=== PATIENT | female | born 1990 | race Caucasian/White ===

== ENCOUNTER → 2017-08-31 | Outpatient (CLI) | payer MEDICAID ==
--- NOTE | 2017-08-31 14:11 | RADIOLOGY REPORT (SQ) ---
EXAM DESCRIPTION: CHEST PA/LATERAL COMPLETED DATE/TIME: 08/31/2017 1:56 pm REASON FOR STUDY: CHEST PAIN, UNSPECIFIED COMPARISON: None. EXAM PARAMETERS: NUMBER OF VIEWS: two views TECHNIQUE: Digital Frontal and Lateral radiographic views of the chest acquired. RADIATION DOSE: NA LIMITATIONS: none FINDINGS: LUNGS AND PLEURA: No opacities, masses or pneumothorax. No pleural effusion. MEDIASTINUM AND HILAR STRUCTURES: No masses or contour abnormalities. HEART AND VASCULAR STRUCTURES: Heart normal size. No evidence for failure. BONES: No acute findings. HARDWARE: None in the chest. OTHER: No other significant finding. IMPRESSION: NO SIGNIFICANT RADIOGRAPHIC FINDING IN THE CHEST. TECHNICAL DOCUMENTATION: JOB ID: [id number] [employer]- All Rights Reserved
== END ==
LOC: OD 13:37
PROVIDERS: ATTEND Nurse Practitioner Acute Care
DX: R07.9 Chest pain, unspecified (principal)
CPT/HCPCS: 71020

== ENCOUNTER → 2018-03-24 | Outpatient (CLI) | payer MEDICAID ==
--- NOTE | 2018-03-24 18:58 | RADIOLOGY REPORT (SQ) ---
EXAM DESCRIPTION: C SP 3 VWS OR LESS COMPLETED DATE/TIME: 03/24/2018 5:49 pm REASON FOR STUDY: NECK PAIN COMPARISON: None. NUMBER OF VIEWS: Two views TECHNIQUE: AP and lateral radiographic images acquired of the cervical spine. LIMITATIONS: None. FINDINGS: MINERALIZATION: Normal. ALIGNMENT: Anatomic. VERTEBRAE: Vertebral bodies of normal height. DISCS: No significant disc space narrowing. No large osteophytes. HARDWARE: None in the spine. SOFT TISSUES: No masses or calcifications. Lung apices clear. OTHER: No other significant finding. IMPRESSION: NO SIGNIFICANT RADIOGRAPHIC FINDING IN THE CERVICAL SPINE. TECHNICAL DOCUMENTATION: JOB ID: [id number] [employer]- All Rights Reserved Reading location - IP/workstation name: [email or web address]
== END ==
LOC: OD 17:25
PROVIDERS: ATTEND Nurse Practitioner Family
DX: M54.2 Cervicalgia (principal)
CPT/HCPCS: 72040

== ENCOUNTER 2018-03-28 03:29 | Emergency (ER) | payer MEDICAID ==
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
[2018-03-28] MEDS ORDERED: LIDOCAINE 5% (700 MG) TRANSDERMAL ADH..PATCH TP ONE (08:06)
[2018-03-28] MEDS ORDERED: IBUPROFEN 800 MG TABLET PO ONE (08:06)
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
[2018-03-28 08:29] VITALS: BP 128/69
== END 2018-03-28 08:28 | disposition home or self-care (01) ==
LOC: ER 03:29
DX: S43.402A Unspecified sprain of left shoulder joint, initial encounter (principal); S46.812A Strain of other muscles, fascia and tendons at shoulder and upper arm level, left arm, initial encounter; W19.XXXA Unspecified fall, initial encounter
CPT/HCPCS: 99283; 73030; J3490 ×2

== ENCOUNTER 2018-07-04 09:02 | Emergency (ER) | payer MEDICAID ==
[2018-07-04 09:27] LABS: APPEARANCE,URINE CLEAR; BILIRUBIN,URINE NEGATIVE (NEGATIVE); COLOR,URINE YELLOW; GLUCOSE, URINE NEGATIVE (NEGATIVE); KETONES,URINE NEGATIVE (NEGATIVE); LEUKOCYTE ESTERASE,URINE NEGATIVE (NEGATIVE); NITRITE,URINE NEGATIVE (NEGATIVE); PROTEIN,URINE NEGATIVE (NEGATIVE); URINE SPECIFIC GRAVITY 1.016; UROBILINOGEN,URINE NEGATIVE mg/dL (<2.0)
--- NOTE | 2018-07-04 09:48 | ER Document Report ---
ED Medical Screen (RME) - General Chief Complaint: Urinary Problem Stated Complaint: URINARY PROBLEM Time Seen by Provider: 07/04/18 09:37 Notes: Patient says she thinks she has a UTI. She is having sharp, stabbing pains in the lower pelvic region bilaterally and also pressure in the pelvic region. Patient says that she started having this pressure feeling in her pelvic region about a week and a half ago. Then, she started having symptoms like a urinary tract infection Thursday night. She is having urgency and burning at times, but now it is just mostly pressure. She has not noticed any blood in her urine. Has not had any fevers. Nauseated but not vomiting. LMP was last wee. No history of any abdominal surgeries. On no regular prescription medications. TRAVEL OUTSIDE OF THE [place] IN LAST 30 DAYS: No - Related Data Allergies/Adverse Reactions: No Known Allergies Allergy (Verified 07/04/18 09:40) Past Medical History - General Last Menstrual Period: last week - Social History Chew tobacco use (# tins/day): No Frequency of alcohol use: weekends Drug Abuse: Cocaine Renal/ Medical History: Denies: Hx Peritoneal Dialysis - Immunizations Hx Diphtheria, Pertussis, Tetanus Vaccination: Yes Physical Exam - Vital signs Vitals: Temp Pulse Resp BP Pulse Ox 98.3 F 100 18 145/91 H 98 07/04/18 09:09 07/04/18 09:09 07/04/18 09:09 07/04/18 09:09 07/04/18 09:09 Course - Vital Signs Vital signs: Temp Pulse Resp BP Pulse Ox 98.3 F 100 18 145/91 H 98 07/04/18 09:09 07/04/18 09:09 07/04/18 09:09 07/04/18 09:09 07/04/18 09:09 Doctor's Discharge - Discharge Referrals: MIMA ESCOBAR FNP-C [Primary Care Provider] - Follow up as needed
[2018-07-04 10:16] LABS: ABSOLUTE BASOPHILS # (AUTO) 0.1 10^3/uL (0.0-0.2); ABSOLUTE LYMPHOCYTES (AUTO) 1.9 10^3/uL (0.5-4.7); ABSOLUTE MONOCYTES (AUTO) 0.4 10^3/uL (0.1-1.4); ABSOLUTE NEUT (AUTO) 8.3 10^3/uL (1.7-8.2); BASOPHILS % (AUTO) 0.6 % (0-2); HEMATOCRIT 38.2 % (36.0-47.0); HEMOGLOBIN 13.1 g/dL (12.0-15.5); LYMPHOCYTES % (AUTO) 17.9 % (13-45); MEAN CORPUSCULAR HEMOGLOBIN 31.1 pg (27.0-33.4); MEAN CORPUSCULAR HGB CONC 34.3 g/dL (32.0-36.0); MEAN CORPUSCULAR VOLUME 91 fl (80-97); MONOCYTES % (AUTO) 3.7 % (3-13); PLATELET COUNT 284 10^3/uL (150-450); RED BLOOD COUNT 4.21 10^6/uL (3.72-5.28); RED CELL DISTRIBUTION WIDTH 12.9 % (11.5-14.0); SEGMENTED NEUTROPHILS % (AUTO) 77.8 % (42-78); TOTAL CELLS COUNTED % (AUTO) 100 %; WHITE BLOOD COUNT 10.7 10^3/uL (4.0-10.5)
[2018-07-04 10:29] LABS: ALANINE AMINOTRANSFERASE 23 U/L (9-52); ALBUMIN 4.5 g/dL (3.5-5.0); ALKALINE PHOSPHATASE 73 U/L (38-126); ANION GAP 9 (5-19); ASPARTATE AMINO TRANSFERASE 23 U/L (14-36); BILIRUBIN,DIRECT 0.4 mg/dL (0.0-0.4); BILIRUBIN,TOTAL 0.6 mg/dL (0.2-1.3); BLOOD UREA NITROGEN 10 mg/dL (7-20); CALCIUM 9.8 mg/dL (8.4-10.2); CARBON DIOXIDE 24 mmol/L (22-30); CHLORIDE 106 mmol/L (98-107); GLUCOSE 99 mg/dL (75-110); LIPASE 44.8 U/L (23-300); POTASSIUM 4.3 mmol/L (3.6-5.0); TOTAL PROTEIN 7.6 g/dL (6.3-8.2)
--- NOTE | 2018-07-04 11:27 | ER Document Report ---
ED GI/ <MEGAN CUETO - Last Filed: 07/04/18 11:47> - General Information source: Patient TRAVEL OUTSIDE OF THE [place] IN LAST 30 DAYS: No - HPI Patient complains to provider of: Other - See above Onset: Other - See above Timing/Duration: Gradual Quality of pain: Other - See above Severity at maximum: Mild Severity in ED: Mild Pain Level: Denies Sexual history: Active Associated symptoms: Other - See above Exacerbated by: Denies Relieved by: Denies Similar symptoms previously: Yes Recently seen / treated by doctor: Yes <DONI RAMOS - Last Filed: 07/04/18 12:34> - General Chief Complaint: Urinary Problem Stated Complaint: URINARY PROBLEM Time Seen by Provider: 07/04/18 09:37 Notes: Patient is a 28-year-old female with past medical history as recorded on 10 days ago started to have some intermittent suprapubic abdominal discomfort without radiation. She denies nausea, vomiting, fevers, but does state some dysuria and some white vaginal discharge. No flank pain or history of kidney stones. Patient denies any pain at this time. (DONI RAMOS) - Related Data Allergies/Adverse Reactions: No Known Allergies Allergy (Verified 07/04/18 09:40) Past Medical History - General Last Menstrual Period: last week - Social History Smoking Status: Current Every Day Smoker Chew tobacco use (# tins/day): No Frequency of alcohol use: weekends Drug Abuse: Cocaine Family History: Reviewed & Not Pertinent Patient has suicidal ideation: No Patient has homicidal ideation: No Renal/ Medical History: Denies: Hx Peritoneal Dialysis - Immunizations Hx Diphtheria, Pertussis, Tetanus Vaccination: Yes <DONI RAMOS - Last Filed: 07/04/18 12:34> Review of Systems - Review of Systems Constitutional: denies: Fever EENT: denies: Eye discharge, Nose discharge Cardiovascular: denies: Chest pain Respiratory: denies: Short of breath Gastrointestinal: denies: Vomiting Genitourinary: Dysuria. denies: Burning Musculoskeletal: denies: Leg swelling Skin: Other - no hives. denies: Rash Neurological/Psychological: Other - no slurred speech -: Yes All other systems reviewed and negative <DONI RAMOS - Last Filed: 07/04/18 12:34> Physical Exam - Genitourinary External exam: Normal Speculum exam: Cervix closed, Vaginal discharge - Moderate amount of white vaginal discharge Vaginal bleeding: None Bimanuel exam: Normal, Other - Vaginal foreign body consistent with patient's reported history of NuvaRing. No: Cervical motion tender, Adnexal tenderness <MEGAN CUETO - Last Filed: 07/04/18 11:47> <DONI RAMOS - Last Filed: 07/04/18 12:34> - Vital signs Vitals: Temp Pulse Resp BP Pulse Ox 98.3 F 100 18 145/91 H 98 07/04/18 09:09 07/04/18 09:09 07/04/18 09:09 07/04/18 09:09 07/04/18 09:09 Notes: Reviewed vital signs and nursing note as charted by RN. CONSTITUTIONAL: Alert and oriented and responds appropriately to questions. Well -appearing; well-nourished HEAD: Normocephalic; atraumatic EYES: Sclerae non-icteric CARD: Regular rate and rhythm; no murmurs, symmetric distal pulses RESP: Normal chest excursion without splinting or tachypnea; breath sounds clear and equal bilaterally ABD/GI: Normal bowel sounds; non-distended; soft, nontender to deep palpation currently in all 4 quadrants of the abdomen BACK: The back appears normal and is non-tender to palpation, there is no CVA tenderness EXT: Normal ROM in all joints; non-tender to palpation; no cyanosis, no effusions, no edema SKIN: No acute lesions noted NEURO: Moves all extremities equally; Motor and sensory function intact PSYCH: The patient's mood and manner are appropriate. Grooming and personal hygiene are appropriate. (DONI RAMOS) - Genitourinary Notes: MEGGAN Daley as standby during exam (MEGAN CUETO) Course - Laboratory Result Diagrams: 07/04/18 10:00 07/04/18 10:00 <MEGAN CUETO - Last Filed: 07/04/18 11:47> - Laboratory Result Diagrams: 07/04/18 10:00 07/04/18 10:00 <DONI RAMOS - Last Filed: 07/04/18 12:34> - Re-evaluation Re-evalutation: 07/04/18 11:27 Given the above history and physical examination, we will perform a urine analysis, termination. Patient currently has absolutely no tenderness. She does endorse some dysuria and vaginal discharge. Patient has had no fevers or vomiting. 07/04/18 12:09 Labs as recorded. Patient requested a pelvic examination by a female so this was performed by the physician student assistant. She states no external or internal lesions. No cervical motion tenderness. 07/04/18 12:33 Labs and urine analysis as recorded. Chlamydia/GC is pending. Wet prep unremarkable. Patient still has no tenderness. Patient will be discharged home with strict return precautions and follow-up with the primary care provider. (DONI RAMOS) - Vital Signs Vital signs: Temp Pulse Resp BP Pulse Ox 98.3 F 100 18 145/91 H 98 07/04/18 09:09 07/04/18 09:09 07/04/18 09:09 07/04/18 09:09 07/04/18 09:09 - Laboratory Laboratory results interpreted by me: 07/04/18 10:00 WBC 10.7 H Absolute Neutrophils 8.3 H Discharge <MEGAN CUETO - Last Filed: 07/04/18 11:47> <DONI RAMOS - Last Filed: 07/04/18 12:34> - Discharge Clinical Impression: Pelvic pain Condition: Good Disposition: HOME, SELF-CARE Additional Instructions: Come back immediately with any increased pain, change in location or quality of pain, fevers or vomiting, or any other acute problems. Please make sure that she follow-up with your primary care physician as we have discussed. Referrals: MIMA ESCOBAR FNP-C [NO LOCAL MD] - Follow up as needed
[2018-07-04 12:16] LABS: T.VAGINALIS (WET MOUNT) NO TRICHOMONAS SEEN; WBCS (WET MOUNT) 1+ WBCS SEEN; YEAST (WET MOUNT) NO YEAST SEEN
[2018-07-04 13:02] VITALS: BP 126/70
[2018-07-04 13:48] LABS: CHLAM PCR NOT DETECTED (NOT DETECT); GON PCR NOT DETECTED (NOT DETECT)
== END 2018-07-04 13:02 | disposition home or self-care (01) ==
LOC: ER 09:02
DX: R10.2 Pelvic and perineal pain (principal); R30.0 Dysuria; N89.8 Other specified noninflammatory disorders of vagina; F17.200 Nicotine dependence, unspecified, uncomplicated
CPT/HCPCS: 36415; 80053; 81001; 83690; 84703; 85025; 87210; 87491; 87591; 99284

== ENCOUNTER → 2018-07-14 | Outpatient (CLI) | payer MEDICAID ==
--- NOTE | 2018-07-14 18:08 | RADIOLOGY REPORT (SQ) ---
EXAM DESCRIPTION: U/S NON-OB PELVIS TV W/O DOP COMPLETED DATE/TIME: 07/14/2018 5:38 pm REASON FOR STUDY: PELVIC AND PERINEAL PAIN R10.2 PELVIC AND PERINEAL PAIN LMP 06/28/2018 COMPARISON: None. TECHNIQUE: Dynamic and static grayscale images acquired of the pelvis via transvaginal approach and recorded on PACS. Additional selected color Doppler and spectral images recorded. LIMITATIONS: None. FINDINGS: UTERUS: Contour normal. No mass. ENDOMETRIAL STRIPE: No focal or generalized thickening. No masses. CERVIX: 3 cm. No nabothian cysts. RIGHT OVARY AND DOPPLER: Ovary not seen. LEFT OVARY AND DOPPLER: Ovary not seen. FREE FLUID: None noted. OTHER: No other significant finding. MEASUREMENTS: UTERUS: 8.3 x 4 x 6.4 cm. ENDOMETRIAL STRIPE: 4 mm. RIGHT OVARY: Ovary not seen. LEFT OVARY: Ovary not seen. IMPRESSION: Normal transvaginal pelvic ultrasound. The ovaries could not be seen, however. TECHNICAL DOCUMENTATION: JOB ID: [id number] [employer]- All Rights Reserved Rev-02/26 Reading location - IP/workstation name: [email or web address]
== END ==
LOC: RAD 15:30
PROVIDERS: ATTEND Nurse Practitioner Family
DX: R10.2 Pelvic and perineal pain (principal)
CPT/HCPCS: 76830